=== PATIENT | male | born 1945 | race Caucasian/White ===

== ENCOUNTER 2022-07-26 20:52 | Inpatient (IN) | payer OTHER ==
[~2022-07-26] VITALS: Ht 180.3 cm; Wt 87.7 kg
[2022-07-26 21:30] LABS: BASOPHILS ABSOLUTE AUTO 0.03 K/mm3 (0.00-0.23); BASOPHILS PERCENT AUTO 0 % (0-2); EOSINOPHILS PERCENT AUTO 0 % (0-6); Hematocrit 48.2 % (37.0-53.0); Hemoglobin 15.5 g/dL (13.5-17.5); IMMATURE GRAN ABSOLUTE AUTO 0.07 K/mm3 (0.00-0.10); IMMATURE GRAN PERCENT AUTO 0 % (0-1); LYMPHOCYTES ABSOLUTE AUTO 1.04 K/mm3 (0.84-5.20); LYMPHOCYTES PERCENT AUTO 6 % (21-46); MONOCYTES ABSOLUTE AUTO 0.44 K/mm3 (0.16-1.47); MONOCYTES PERCENT AUTO 3 % (4-13); Mean Corpuscular HGB 29.4 pg (26.0-34.0); Mean Corpuscular HGB Conc 32.2 g/dL (31.5-36.5); Mean Corpuscular Volume 92 fL (80-100); NEUTROPHILS ABSOLUTE AUTO 15.87 K/mm3 (1.96-9.15); NEUTROPHILS PERCENT AUTO 91 % (41-73); Platelet Count 183 K/mm3 (150-400); RDW Coefficient Variation 13.2 % (11.7-14.2); RDW Standard Deviation 44.5 fL (35.1-46.3); Red Blood Cell Count 5.27 M/mm3 (4.30-5.90); White Blood Cell Count 17.45 K/mm3 (4.00-11.30)
[2022-07-26 22:30] LABS: Albumin, Blood 3.5 g/dL (3.4-5.0); Bilirubin, Total 0.3 mg/dL (0.1-1.0); Bun/Creatinine Ratio 24.6 (12.0-20.0); Calcium, Blood 9.5 mg/dL (8.5-10.1); Creatinine, Blood 0.98 mg/dL (0.60-1.20); Globulin, Blood 3.5 g/dL (2.2-4.0); Potassium, Blood 3.5 mmol/L (3.5-5.5)
[2022-07-26 23:06] LABS: Source, Urine Clean Catch
[2022-07-26 23:08] LABS: Bilirubin, Urine Neg (Neg); Blood, Urine 4+ (Neg); Glucose Qualitative, Urine 4+ (Neg); Ketones, Urine 1+ (Neg); Leukocyte Esterase, Urine Neg (Neg); Nitrite, Urine Neg (Neg); Protein, Urine 2+ (Neg); Specific Gravity, Urine 1.025 (1.003-1.022); Urobilinogen, Urine NORM (Normal)
[2022-07-27 00:37] LABS: Appearance, Urine Clear (Clear); Color, Urine Yellow (P-Yellow)
[2022-07-27 00:42] LABS: Bacteria Few /hpf; Mucus Light (0-Heavy); Squamous Epithelial Cells Few /hpf (Few); White Blood Cells, Urine 0-2 /hpf (0-5)
[2022-07-27] MEDS ORDERED: CLOP75 PO (03:35)
[2022-07-27] MEDS ORDERED: DOXA1 PO (03:36)
[2022-07-27] MEDS ORDERED: FINA5 PO (03:36)
[2022-07-27] MEDS ORDERED: PRAV20 PO (03:37)
[2022-07-27] MEDS ORDERED: LISI20 PO (03:37)
--- NOTE | 2022-07-27 05:50 | NUR ---
PT NEW ADMIT THIS AM FROM ER FOR PANCREATITIS. PT A/O, VSS, DENIES DIZZINESS WHEN UP. GAIT SLIGHTLY UNSTEADY, PT DENIES USING WALKER OR AMBULATORY DEVICE. PT VSS, PT REP PAIN RADIATING ACCROSS UPPER ABD FOR APPX 12 HRS. PT REP ABD MORE DISTENDED, DENIES N/V, REP +FLATUS AND BM. ABD FIRM TO PALP, BT HYPO. IVF STARTED PER ORDERS, PT MED W/TORADOL. PT ORIENTED TO ROOM/CALL LIGHT AND NPO STATUS. BED ALARM ON FOR SAFETY.
[2022-07-27 06:15] LABS: BASOPHILS ABSOLUTE AUTO 0.01 K/mm3 (0.00-0.23); BASOPHILS PERCENT AUTO 0 % (0-2); EOSINOPHILS ABSOLUTE AUTO 0.01 K/mm3 (0.00-0.68); EOSINOPHILS PERCENT AUTO 0 % (0-6); Hematocrit 49.5 % (37.0-53.0); Hemoglobin 15.8 g/dL (13.5-17.5); IMMATURE GRAN ABSOLUTE AUTO 0.09 K/mm3 (0.00-0.10); IMMATURE GRAN PERCENT AUTO 0 % (0-1); LYMPHOCYTES ABSOLUTE AUTO 0.99 K/mm3 (0.84-5.20); LYMPHOCYTES PERCENT AUTO 5 % (21-46); MONOCYTES ABSOLUTE AUTO 1.09 K/mm3 (0.16-1.47); MONOCYTES PERCENT AUTO 5 % (4-13); Mean Corpuscular HGB 29.6 pg (26.0-34.0); Mean Corpuscular HGB Conc 31.9 g/dL (31.5-36.5); Mean Corpuscular Volume 93 fL (80-100); Mean Platelet Volume 11.7 fL (9.1-12.4); NEUTROPHILS ABSOLUTE AUTO 18.12 K/mm3 (1.96-9.15); NEUTROPHILS PERCENT AUTO 89 % (41-73); Platelet Count 154 K/mm3 (150-400); RDW Coefficient Variation 13.3 % (11.7-14.2); RDW Standard Deviation 45.5 fL (35.1-46.3); Red Blood Cell Count 5.33 M/mm3 (4.30-5.90); White Blood Cell Count 20.31 K/mm3 (4.00-11.30)
[2022-07-27 06:39] LABS: Alanine Aminotransfer (ALT/SGP 23 U/L (12-78); Albumin, Blood 3.3 g/dL (3.4-5.0); Albumin/Globulin Ratio 0.9 (0.8-1.8); Alk Phos 51 U/L (50-136); Anion Gap 8 mmol/L (6-16); Aspartate Aminotrans (AST/SGOT 26 U/L (12-37); Bilirubin, Total 0.4 mg/dL (0.1-1.0); Blood Urea Nitrogen 23 mg/dL (8-24); Bun/Creatinine Ratio 27.3 (12.0-20.0); CO2, Blood 18 mmol/L (21-32); Chloride, Blood 113 mmol/L (98-108); Creatinine, Blood 0.84 mg/dL (0.60-1.20); Globulin, Blood 3.6 g/dL (2.2-4.0); Glomerular Filtration Rate 89 (60-); Glucose, Blood 183 mg/dL (70-99); Potassium, Blood 4.2 mmol/L (3.5-5.5); Sodium, Blood 139 mmol/L (136-145); Total Protein, Blood 6.9 g/dL (6.4-8.2); Triglycerides 63 mg/dL (30-160)
[2022-07-27] MEDS ORDERED: ASPI81CH PO (09:55)
[2022-07-27] MEDS ORDERED: ERGO400 PO (10:01)
--- NOTE | 2022-07-27 17:32 | NUR ---
SHIFT SUMMERY PATIENT WILLINGLY ACCEPTED CARE FROM BRICKLAYER TENDER. HIS PAIN HAS DECREASED THROUGHOUT THE DAY. HE HAS RESTED COMFORTABLY BUT WAKES APPROPRIATELY WHEN ADDRESSED. FAMILY WAS AT BEDSIDE THIS MORNING. HE FELT UP TO GETTING A SHOWER THIS AFTERNOON. ALL ADL'S WERE PERFORMED IND WITH SUPERVISION. A NEW IV WAS PLACED ON LEFT FOREARM BECAUSE PATIENT SLEEPS ON RIGHT SIDE OCLUDING THE R. AC SITE. THE LEFT IV IS RUNNING NORMAL SALINE AT 150ML/HR. BOTH SITES ARE PATENT WITH NO REDNESS OR SWELLING. PATIENT DENIES ANY NAUSEA.
[2022-07-28 05:11] LABS: Hematocrit 45.8 % (37.0-53.0); Mean Corpuscular HGB 30.1 pg (26.0-34.0); Mean Corpuscular HGB Conc 32.8 g/dL (31.5-36.5); Mean Corpuscular Volume 92 fL (80-100); Mean Platelet Volume 11.4 fL (9.1-12.4); Platelet Count 140 K/mm3 (150-400); RDW Coefficient Variation 13.7 % (11.7-14.2); RDW Standard Deviation 46.6 fL (35.1-46.3); Red Blood Cell Count 4.99 M/mm3 (4.30-5.90); White Blood Cell Count 22.76 K/mm3 (4.00-11.30)
[2022-07-28 05:54] LABS: Magnesium, Blood 2.2 mg/dL (1.6-2.4)
[2022-07-28 06:07] LABS: Albumin, Blood 2.8 g/dL (3.4-5.0); Albumin/Globulin Ratio 0.8 (0.8-1.8); Bilirubin, Total 0.7 mg/dL (0.1-1.0); Bun/Creatinine Ratio 29.2 (12.0-20.0); Calcium, Blood 8.3 mg/dL (8.5-10.1); Creatinine, Blood 0.99 mg/dL (0.60-1.20); Globulin, Blood 3.3 g/dL (2.2-4.0); Total Protein, Blood 6.1 g/dL (6.4-8.2)
--- NOTE | 2022-07-28 06:17 | NUR ---
PT REP OVERALL LESS PAINFUL, REP PAIN AVG 4/10, MGD W/SCHEDULED TORADOL W/REP RELIEF, ALTHOUGH DID NEED MED FOR BREAKTHROUGH PAIN X1. PT ABD SLIGHTLY LESS FIRM, PT DENIED N/V, REP +FLATUS, NO BM THIS SHIFT. PT VOIDING AMVER URINE. PT REMAINS NPO, IVF CONT PER ORDERS. PT IS IMPULSIVE AT TIMES DURING NIGHT, BED ALARM ON FOR SAFETY.
--- NOTE | 2022-07-28 17:53 | NUR ---
SHIFT SUMMARY WAS ADVANCED TO CLEAR LQ's THIS AFTERNOON AFTER DR HICKS ROUNDED SINCE HAVING MINMAL ABD PAIN. CONT'd TO REPORT MINMAL ABD PAIN AROUND 1500. WHEN AWAOKE w/ CLEAR LQ DINNER TRAY AROUND 1730 C/O 7/10 ABD PAIN DESPITE HAVING ONLY SIPS OF WATER SINCE BROTH AROUND 1400. DENIES N/V. ONLY TAKING SIPS OF WATER.
[2022-07-29 06:19] LABS: Hematocrit 41.9 % (37.0-53.0); Mean Corpuscular HGB 29.5 pg (26.0-34.0); Mean Corpuscular HGB Conc 33.4 g/dL (31.5-36.5); Mean Corpuscular Volume 88 fL (80-100); Mean Platelet Volume 11.9 fL (9.1-12.4); Platelet Count 124 K/mm3 (150-400); RDW Coefficient Variation 13.6 % (11.7-14.2); RDW Standard Deviation 44.2 fL (35.1-46.3); Red Blood Cell Count 4.75 M/mm3 (4.30-5.90)
[2022-07-29 06:38] LABS: Albumin, Blood 2.5 g/dL (3.4-5.0); Albumin/Globulin Ratio 0.7 (0.8-1.8); Bun/Creatinine Ratio 25.7 (12.0-20.0); Calcium, Blood 8.3 mg/dL (8.5-10.1); Creatinine, Blood 0.86 mg/dL (0.60-1.20); Globulin, Blood 3.4 g/dL (2.2-4.0); Magnesium, Blood 2.3 mg/dL (1.6-2.4); Potassium, Blood 3.5 mmol/L (3.5-5.5); Total Protein, Blood 5.9 g/dL (6.4-8.2)
--- NOTE | 2022-07-29 07:56 | NUR ---
PT VSS T/O NIGHT. PT DOES HAVE SOB WHEN FIRST UP OOB, SATS REMAINED >90% ON RA. ABD SOFTER, LESS DISTENDED. PT CONNER CL PO, REP NO FLATUS YET. PT REP ABD PAIN SOMEWHAT IMPROVING, ABD 5/10. NEW ORDER FOR NORCO REC W/REP RELIEF. PT UP OOB W/SBA, CONNER WELL. IVF CONT PER ORDERS. AMB ENC PT CONNER.
--- NOTE | 2022-07-29 19:01 | NUR ---
SHIFT SUMMARY PT HAS DONE WELL TODAY. ADVANCED TO LOW FAT DIET FOR DINNER & TOLERATED WELL. C/O MILD UPPER ABD PAIN THAT RADIATES TO BACK. DENIES N/V.
[2022-07-30 04:45] LABS: Mean Corpuscular HGB 29.5 pg (26.0-34.0); Mean Corpuscular HGB Conc 33.3 g/dL (31.5-36.5); Mean Corpuscular Volume 89 fL (80-100); Mean Platelet Volume 11.5 fL (9.1-12.4); Platelet Count 130 K/mm3 (150-400); RDW Coefficient Variation 13.6 % (11.7-14.2); RDW Standard Deviation 44.2 fL (35.1-46.3); White Blood Cell Count 17.16 K/mm3 (4.00-11.30)
[2022-07-30 05:03] LABS: Albumin, Blood 2.3 g/dL (3.4-5.0); Albumin/Globulin Ratio 0.7 (0.8-1.8); Bilirubin, Total 0.9 mg/dL (0.1-1.0); Calcium, Blood 8.3 mg/dL (8.5-10.1); Creatinine, Blood 0.97 mg/dL (0.60-1.20); Globulin, Blood 3.5 g/dL (2.2-4.0); Magnesium, Blood 2.3 mg/dL (1.6-2.4); Potassium, Blood 3.3 mmol/L (3.5-5.5); Total Protein, Blood 5.8 g/dL (6.4-8.2)
--- NOTE | 2022-07-30 05:43 | NUR ---
PT VSS T/O NIGHT. LUNGS COARSE AT TIMES, CLEAR W/COUGH. PT REP COUGH BECOMING MORE PRODUCTIVE. ABD REMAINS MILDLY DISTENDED, PAINFUL IN UPPER ABD, RADIATES TO BACK PER PT. PT REP PAIN MUCH BETTER MGD W/2 NORCO AND TORADOL. PT DENIED N/V, REP +FLATUS, NO BM YET. PT VOIDING URINE W/O DIFFICULTY. PT UP INDEP IN ROOM, SBA PRN.
--- NOTE | 2022-07-30 11:07 | NUR ---
Pt. is awake in bed and welcomes my visit. Pt. is pleasant, but shared details of the pain he experienced with his pancreatitus. Listened empathetically with a calming presence. Pt. displayed evidence of awareness and engagement. Pt. verbalized anticipation for dischare today. Prayed with Pt. Pt. verbalized gratitude for excellent medical care as well as the spiritual care visit.
[2022-07-30] MEDS ORDERED: Acetaminophen650 M1 PO (12:53)
[2022-07-30] MEDS ORDERED: DOCU100 PO (12:54)
[2022-07-30] MEDS ORDERED: HYDR1TAB94 PO (12:56)
== END 2022-07-30 13:14 | disposition home or self-care (01) | DRG 440 ==
LOC: ER 20:52 → SURS 07-27 04:25
PROVIDERS: Emergency Medicine; Family Medicine; Internal Medicine; ADMIT Internal Medicine
DX: K85.90 Acute pancreatitis without necrosis or infection, unspecified (principal); N40.0 Benign prostatic hyperplasia without lower urinary tract symptoms; R06.00 Dyspnea, unspecified; I10 Essential (primary) hypertension; D72.829 Elevated white blood cell count, unspecified; F17.210 Nicotine dependence, cigarettes, uncomplicated; Z86.73 Personal history of transient ischemic attack (TIA), and cerebral infarction without residual deficits; Z88.8 Allergy status to other drugs, medicaments and biological substances
CPT/HCPCS: 36415; 71046; 74177; 80053; 81001; 82947; 83690; 83735; 83880; 84478; 84484; 85025; 85027; 93005; 93010; 96374-59; 96375; 96376; 99285-25; A9270; C9113; J1170; J1650; J1885; J2405; J7030; J7120; Q9967

== ENCOUNTER 2022-08-14 11:59 | Inpatient (IN) | payer OTHER ==
[~2022-08-14] VITALS: Ht 177.8 cm; Wt 85.5 kg
[~2022-08-14 11:59] MED LIST: ASPI81CH PO; Acetaminophen650 M1 PO; CLOP75 PO; DOCU100 PO; DOXA1 PO; ERGO400 PO; FINA5 PO; HYDR1TAB94 PO; LISI20 PO; PRAV20 PO
[2022-08-14 13:14] LABS: BASOPHILS ABSOLUTE AUTO 0.03 K/mm3 (0.00-0.23); BASOPHILS PERCENT AUTO 0 % (0-2); EOSINOPHILS PERCENT AUTO 0 % (0-6); Hematocrit 42.2 % (37.0-53.0); IMMATURE GRAN ABSOLUTE AUTO 0.12 K/mm3 (0.00-0.10); IMMATURE GRAN PERCENT AUTO 1 % (0-1); LYMPHOCYTES ABSOLUTE AUTO 1.02 K/mm3 (0.84-5.20); LYMPHOCYTES PERCENT AUTO 5 % (21-46); MONOCYTES ABSOLUTE AUTO 0.75 K/mm3 (0.16-1.47); MONOCYTES PERCENT AUTO 4 % (4-13); Mean Corpuscular HGB 28.9 pg (26.0-34.0); Mean Corpuscular HGB Conc 33.2 g/dL (31.5-36.5); Mean Corpuscular Volume 87 fL (80-100); NEUTROPHILS ABSOLUTE AUTO 17.41 K/mm3 (1.96-9.15); NEUTROPHILS PERCENT AUTO 90 % (41-73); Platelet Count 333 K/mm3 (150-400); RDW Coefficient Variation 13.2 % (11.7-14.2); RDW Standard Deviation 41.9 fL (35.1-46.3); Red Blood Cell Count 4.84 M/mm3 (4.30-5.90); White Blood Cell Count 19.33 K/mm3 (4.00-11.30)
[2022-08-14 13:37] LABS: Albumin, Blood 2.4 g/dL (3.4-5.0); Albumin/Globulin Ratio 0.5 (0.8-1.8); Bilirubin, Total 0.4 mg/dL (0.1-1.0); Bun/Creatinine Ratio 19.3 (12.0-20.0); Creatinine, Blood 0.98 mg/dL (0.60-1.20); Globulin, Blood 4.4 g/dL (2.2-4.0); Magnesium, Blood 2.3 mg/dL (1.6-2.4); Potassium, Blood 3.9 mmol/L (3.5-5.5); Thyroid Stimulating Hormone 0.156 uIU/mL (0.360-4.800); Total Protein, Blood 6.8 g/dL (6.4-8.2)
--- NOTE | 2022-08-14 20:30 | NUR ---
ADMISSION PT ADMITTED FROM THE ED, PT IS AWAKE, A& X4, VSS, ON 2L O2 VIA NC, RESP UNLABORED, LUNGS DIM BILAT BASES, CARDIZEM GTT INFUSING @ 5 ML/HR, HR 94, AFIB, DENIES CP/PRESSURE. PT HAS BEEN MEDICATED FOR PAIN IN THE ED DUE TO PANCREATITIS. PT WAS ABLE TO TRANSFER VIA STAND BY ASSIST FROM [facility]. NS @150 ML/HR INFUSIONG PER EMAR, PT NPO AT THIS TIME. CALL LIGHT IN REACH, WCTM
[2022-08-15 04:21] LABS: Hematocrit 37.6 % (37.0-53.0); Hemoglobin 12.5 g/dL (13.5-17.5); Mean Corpuscular HGB 29.3 pg (26.0-34.0); Mean Corpuscular HGB Conc 33.2 g/dL (31.5-36.5); Mean Corpuscular Volume 88 fL (80-100); Mean Platelet Volume 10.8 fL (9.1-12.4); Platelet Count 315 K/mm3 (150-400); RDW Coefficient Variation 13.4 % (11.7-14.2); RDW Standard Deviation 43.4 fL (35.1-46.3); Red Blood Cell Count 4.27 M/mm3 (4.30-5.90); White Blood Cell Count 18.46 K/mm3 (4.00-11.30)
[2022-08-15 04:40] LABS: Bun/Creatinine Ratio 22.9 (12.0-20.0); Calcium, Blood 8.4 mg/dL (8.5-10.1); Creatinine, Blood 1.05 mg/dL (0.60-1.20); Potassium, Blood 4.1 mmol/L (3.5-5.5)
--- NOTE | 2022-08-15 05:27 | NUR ---
SHIFT SUMMARY PT IS A&O X4, COOPERATIVE W/CARE, VSS, ON 2 L O2 WHILE SLEEPING. PT HAS BEEN NPO, DENIES NAUSEA, PASSING FLATUS, VOIDING WNL. PAIN MNG WITH 50 MCG IV FENTANYL PRN PER EMAR. NS @150 ML/HR, PT IS VOIDING WNL, HE LIKES TO STAND AT THE BEDSIDE TO URINATE. PT CONVERTED TO SR, CARDIZEM GTT STOPPED AT 0004, HR REMAINED 85-95 BPM WHILE AT REST, WHEN PT GOT UP TO THE BEDSIDE TO URINATE HIS HR RATE INCREASED AND HE CONVERTED BACK TO AFIB X2, PT IS CURRENTLY IN BED RESTING QUIETLY, SINUS, HR 93. DISCUSSED PT W/IMMIGRATION INVESTIGATOR, WCUSHA & REPORT TO DAY RN, CALL LIGHT IN REACH.
--- NOTE | 2022-08-15 18:54 | NUR ---
DAY SHIFT SUMMARY PT ORIENTED X4, VSS PER PT TREND. ST LOW 1O0S ON TELEMETRY. INCREASE TO 130S WITH AMBULATION. PAIN IN BACK AND ABDOMEN 10/10 WHEN AWAKE. SPOKE WITH DR. DOSHI THIS AFTERNOON AND FENTANYL CARPET CUTTER ORDERED FOR BETTER PAIN CONTROL. SEE EMAR FOR DETAILS. BLADDER SCAN COMPLETED DUE TO LOW MEASURED VOIDS, ONLY 350 ML AND 300ML VOIDED WITH A POST VOID OF 76ML. PAIN WITH ABDOMEN PALPATION. ON 3L NC, DESATS WITH SLEEP. CONTINOUS PULSE OX. PT REPORTS BETTER PAIN RELIEF AFTER INITIATION OF CARPET CUTTER. WILL PASS ON TO NOC RN
--- NOTE | 2022-08-16 04:16 | NUR ---
SHIFT SUMMARY: A&OX4, IRRITABLE AT TIMES BUT COOPERATIVE. VEGETABLE FARMING SUPERVISOR PUMP ADMINISTERING FENTANYL AT PT REQUEST WITH LOCKOUT 100 MCG Q4HR. PT STATES PAIN IS TOLERABLE AT 4/10. PT NAUSEATED X 1 WITH SMALL EMESIS, RESOLVED WITH ZOFRAN ADMINISTRATION, SEE EMAR. HR CONTINUES TO BE LABILE BETWEEN ST IN 100'S TO A-FIB IN 130'S. NO COMPLAINTS OF CHEST PAIN. AFEBRILE. O2 SATS > 92% ON 3 LPM, DENIES SOB. VOIDING WITHOUT DIFFICULTY. ABLE TO STAND AT BEDSIDE FOR SHORT AMOUNT OF TIME TO VOID.
[2022-08-16 04:46] LABS: BASOPHILS ABSOLUTE AUTO 0.03 K/mm3 (0.00-0.23); BASOPHILS PERCENT AUTO 0 % (0-2); EOSINOPHILS PERCENT AUTO 0 % (0-6); Hematocrit 36.6 % (37.0-53.0); Hemoglobin 12.2 g/dL (13.5-17.5); IMMATURE GRAN PERCENT AUTO 1 % (0-1); LYMPHOCYTES ABSOLUTE AUTO 1.05 K/mm3 (0.84-5.20); LYMPHOCYTES PERCENT AUTO 6 % (21-46); MONOCYTES ABSOLUTE AUTO 0.92 K/mm3 (0.16-1.47); MONOCYTES PERCENT AUTO 5 % (4-13); Mean Corpuscular HGB 29.4 pg (26.0-34.0); Mean Corpuscular HGB Conc 33.3 g/dL (31.5-36.5); Mean Corpuscular Volume 88 fL (80-100); NEUTROPHILS ABSOLUTE AUTO 16.05 K/mm3 (1.96-9.15); NEUTROPHILS PERCENT AUTO 88 % (41-73); Platelet Count 301 K/mm3 (150-400); RDW Coefficient Variation 13.4 % (11.7-14.2); RDW Standard Deviation 43.9 fL (35.1-46.3); Red Blood Cell Count 4.15 M/mm3 (4.30-5.90); White Blood Cell Count 18.15 K/mm3 (4.00-11.30)
[2022-08-16 05:01] LABS: Magnesium, Blood 2.1 mg/dL (1.6-2.4)
[2022-08-16 05:02] LABS: Albumin, Blood 1.8 g/dL (3.4-5.0); Albumin/Globulin Ratio 0.5 (0.8-1.8); Bilirubin, Total 0.6 mg/dL (0.1-1.0); Bun/Creatinine Ratio 31.4 (12.0-20.0); Calcium, Blood 7.7 mg/dL (8.5-10.1); Creatinine, Blood 0.76 mg/dL (0.60-1.20); Globulin, Blood 3.9 g/dL (2.2-4.0); Potassium, Blood 3.8 mmol/L (3.5-5.5); Total Protein, Blood 5.7 g/dL (6.4-8.2)
[2022-08-16 18:09] LABS: Adenovirus Not Detected (NOT DETECT); Bordetella pertussis Not Detected (NOT DETECT); Chlamydophila pneumoniae Not Detected (NOT DETECT); Coronavirus 229E Not Detected (NOT DETECT); Coronavirus HKU1 Not Detected (NOT DETECT); Coronavirus NL63 Not Detected (NOT DETECT); Coronavirus OC43 Not Detected (NOT DETECT); Human Metapneumovirus Not Detected (NOT DETECT); Human Rhinovirus/Enterovirus Not Detected (NOT DETECT); Influenza A/2009-H1 Not Detected (NOT DETECT); Influenza A/H1 Not Detected (NOT DETECT); Influenza A/H3 Not Detected (NOT DETECT); Influenza B Not Detected (NOT DETECT); Mycoplasma pneumoniae Not Detected (NOT DETECT); Parainfluenza Virus 1 Not Detected (NOT DETECT); Parainfluenza Virus 2 Not Detected (NOT DETECT); Parainfluenza Virus 3 Not Detected (NOT DETECT); Parainfluenza Virus 4 Not Detected (NOT DETECT); Respiratory Syncytial Virus Not Detected (NOT DETECT); SARS-Cov-2 (COVID-19), BioFire Not Detected (NOT DETECT)
--- NOTE | 2022-08-16 18:46 | NUR ---
DAY SHIFT SUMMARY PT HAD A PRODUCTIVE DAY. ORIENTED X4, VSS PER PT TREND. REPORTS PAIN BETTER CONTROLLED AFTER SETTING CHANGES TO FENTANYL UNDERGROUND PRODUCTION FOREPERSON AFTER DISCUSSION WITH DR. DOSHI THIS AM. CRACKLES NOTED IN LUNG BASES, ORDERS RECEIVED FOR CHEST XRAY AND ALBUMIN X2 BAGS. PT REQUIRING 2L NC. RESPIRATORY PANEL SENT AND CAME BACK NEGATIVE THIS EVENING. NO NAUSEA OR VOMITING. HR CONTROLLED WITH PO MEDS. CARDIZEM GTT OFF SINCE YESTERDAY. - KJ UPDATED ON PLAN OF CARE. WILL PASS ON TO NOC SHIFT RN
--- NOTE | 2022-08-17 05:06 | NUR ---
SHIFT SUMMARY: PT A&OX4. REPORTS PAIN CONTROL HAVE IMPROVED WITH PAIN AT 2/10 IN ABDOMEN WITH LITHOGRAPH DESIGNER PUMP ON DEMAND. ABDOMEN DISTENDED BUT SOFT, MILDLY TENDER TO PALPATION. LUNCH SOUNDS CONTINUE TO BE COARSE AND DEMINISHED IN ALL [place]. IS PROVIDED AND ENCOURAGED TO USE, PT ABLE TO DEMONSTRATE USE. ALSO ENCOURAGED COUGHING/DEEP BREATHING. HR A-FIB/ST IN LOW 100'S. DENIES CHEST PAIN. O2 SATS > 92% ON 3LPM, ABLE TO DECREASE TO 2 LPM WITH PT MAINTAINING O2 SATS. FLUIDS INFUSING AT 50 ML/HR. VOIDING TEA COLORED URINE STANDING AT [facility]. HEATING PAD PROVIDED AT PT REQUEST FOR ACHING IN BACK WITH GOOD RESULTS.
[2022-08-17 13:27] LABS: BASOPHILS ABSOLUTE AUTO 0.01 K/mm3 (0.00-0.23); BASOPHILS PERCENT AUTO 0 % (0-2); EOSINOPHILS PERCENT AUTO 0 % (0-6); Hematocrit 39.3 % (37.0-53.0); Hemoglobin 13.2 g/dL (13.5-17.5); IMMATURE GRAN ABSOLUTE AUTO 0.07 K/mm3 (0.00-0.10); IMMATURE GRAN PERCENT AUTO 0 % (0-1); LYMPHOCYTES ABSOLUTE AUTO 1.24 K/mm3 (0.84-5.20); LYMPHOCYTES PERCENT AUTO 7 % (21-46); MONOCYTES ABSOLUTE AUTO 1.05 K/mm3 (0.16-1.47); MONOCYTES PERCENT AUTO 6 % (4-13); Mean Corpuscular HGB 29.7 pg (26.0-34.0); Mean Corpuscular HGB Conc 33.6 g/dL (31.5-36.5); Mean Corpuscular Volume 88 fL (80-100); NEUTROPHILS ABSOLUTE AUTO 14.93 K/mm3 (1.96-9.15); NEUTROPHILS PERCENT AUTO 86 % (41-73); Platelet Count 287 K/mm3 (150-400); RDW Coefficient Variation 13.4 % (11.7-14.2); RDW Standard Deviation 43.5 fL (35.1-46.3); Red Blood Cell Count 4.45 M/mm3 (4.30-5.90)
--- NOTE | 2022-08-17 16:56 | NUR ---
CARE NOTE AT APPROX. 1600 PT HAD RETURNED TO CHAIR FROM TAKING A SHOWER, 1607 BP WAS 85/53, PT RETURNED TO BED AND UPON BP REASSESSMENT, BP AT 1649 WAS 130/73 W/ A MAP OF 91. DR. DOSHI MADE AWARE AT APPROX. 1650 OF PT BP AND HR STATUS. WE DISCUSSED ADMINISTERING 1700 METOPROLOL BUT IF BP DECREASES AGAIN TO ADMINISTER FLUID BOLUS. WILL CONTINUE TO MONITOR AND INTERVENE APPROPRIATE.
--- NOTE | 2022-08-17 17:51 | NUR ---
CARE NOTE INSTRUCTIONAL DESIGN CONSULTANT PUMP CLEARED, CARLOS MENCHACA RN ASSISTED. 2 INSTRUCTIONAL DESIGN CONSULTANT KEYS REMOVED FROM PYXIS BECAUSE THE FIRST SYKES DID NOT OPEN INSTRUCTIONAL DESIGN CONSULTANT PUMP, SYKES RETURNED TO EXTERNAL BIN AND WITNESSED BY ELPIDIO MENCHACA RN. SECOND SYKES RETURNED TO PYXIS POCKET. ALSO WITNESSED BY ELPIDIO MENCHACA RN
--- NOTE | 2022-08-17 18:36 | NUR ---
SHIFT SUMMARY PT IS ALERT AND ORIENTED X 4, HE IS PLEASANT AND COOPERATIVE W/ CARE AND IS ABLE TO MAKE HIS NEEDS KNOWN. PER TELE MONITORING, HR HAS RANGED FROM 100-130'S. AFTER WORKING W/ PHYSICAL THERAPY, HR STARTED TO SUSTAIN IN 140'S, AND EVEN PEAKED AT 180, MADE AWARE AND ORDERS GIVEN, SEE EMAR. HR CONTINUED TO SUSTAIN 110'S-120'S, SEE EMAR FOR METORPROLOL DOSE ADJUSTMENTS PER ORDERS. SEE PREVIOUS NOTE REGARDING BP DECREASE. BP IS NOW STABLE W/ SBP 112. HE HAS CONTINUED TO DENY FEELINGS OF CHEST PAIN/PRESSURE WELL LIGHTHEADEDNESS/DIZZINESS. PAIN IS CONTROLLED VIA WAFER ABRADING MACHINE TENDER PUMP. OCCASIONAL DRY COUGH NOTED. HE HAS BEEN UP TO CHAIR MULTIPLE TIMES DURING SHIFT A 1 PERSON SBA. HE USES BEDSIDE URINAL TO VOID. HE ATTEMPTED A BM W/ NO SUCCESS THIS AM, BOWEL CARE PROVIDED APPROPRIATE. CUP W/ MIRALAX WAS ACCIDENTLY THROWN OUT, PT REPORTED ONLY DRINKING 1/4 OF MIRALAX DRINK SO ADDITIONAL DOSE PULLED FOR ADEQUATE DOSE TO BE TAKEN. HIS WAS AT BEDSIDE THIS AFTERNOON. PT IS NOW SLEEPING, CALL LIGHT IN REACH, BED IN LOW, BED ALARM ON TO MAINTAIN SAFETY.
--- NOTE | 2022-08-18 06:16 | NUR ---
SHIFT SUMMARY: A&OX4. DENIES ANY COMPLAINTS OF SOB OR CHEST PAIN DURING SHIFT. HR VARING BETWEEN ST AND A-FIB, 100 WHEN RESTING IN BED. WHEN GETTING UP TO VOID UP TO 150'S, AT TIMES SUSTAINS AFTER RETURNING TO BED, AT OTHER TIMED DECREASES BACK TO 100'S. ATTEMPTED TO WEAN PT'S O2 TO 1 LPM, SUCESSFUL WHEN AWAKE BUT DESATURATES TO 88% WHEN SLEEPING, PLACED BACK ON 3 LPM WHEN SLEEPING. PT DENIES PAIN IN ABDOMEN DURING SHIFT, 220 MCG FENTANYL USED FROM HYDRO PLANT SITE MANAGER PUMP DURING SHIFT. ABDOMEN DISTENDED BUT SOFT TO PALPATION AND NONTENDER. DENIES NAUSEA DURING SHIFT.
[2022-08-18] MEDS ORDERED: LEVO750 PO (14:30)
[2022-08-18] MEDS ORDERED: METO50ER PO (14:30)
[2022-08-18] MEDS ORDERED: ELIQUIS5 M2 PO (14:30)
--- NOTE | 2022-08-18 17:37 | NUR ---
ASSUMED CARE OF PT AT 0700 THIS AM. NO ACUTE CHANGES T/O SHIFT. PT TAKEN OFF EMBROIDERY CUTTER PUMP FOR PAIN AND ADVANCED TO A REGULAR DIET, PT TOLERATED BOTH WELL WITHOUT ANY COMPLAINTS. OK TO DISCHARGE PER DR DOSHI. HOME OX EVAL DONE AND PT IS BEING SENT HOME WITH O2. DISCHARGE TEACHING REVIEWED WITH PT, HE VERBALIZES UNDERSTANDING AND HAS NO QUESTIONS OR CONCERNS AT THIS TIME. IVs REMOVED WNL. ALL BELONGINGS SENT HOME WITH PT, NO OTHER DISCHARGE NEEDS IDENTIFIED AT THIS TIME.
== END 2022-08-18 17:41 | disposition home or self-care (01) | DRG 438 ==
LOC: ER 11:59 → ERHOLD 15:25 → PCU 15:25
PROVIDERS: Emergency Medicine; Nurse Practitioner Acute Care; Student in an Organized Health Care Education/Training Program; ADMIT Internal Medicine
DX: K85.90 Acute pancreatitis without necrosis or infection, unspecified (principal); J18.9 Pneumonia, unspecified organism; I48.19 Other persistent atrial fibrillation; N40.0 Benign prostatic hyperplasia without lower urinary tract symptoms; I10 Essential (primary) hypertension; Z88.8 Allergy status to other drugs, medicaments and biological substances; Z79.82 Long term (current) use of aspirin; Z79.899 Other long term (current) drug therapy; Z86.73 Personal history of transient ischemic attack (TIA), and cerebral infarction without residual deficits; E78.5 Hyperlipidemia, unspecified; F17.210 Nicotine dependence, cigarettes, uncomplicated; E88.09 Other disorders of plasma-protein metabolism, not elsewhere classified; D72.828 Other elevated white blood cell count; Z20.822 Contact with and (suspected) exposure to COVID-19
CPT/HCPCS: 0202U; 36415; 71045; 71046; 76705; 80048; 80053; 82947; 83036; 83690; 83735; 83880; 84439; 84443; 84481; 84484; 85025; 85027; 93005; 93010; 93306; 94761; 94762; 96365; 96366; 96375; 96376; 97110; 97162; 97165; 97530; 97535; 99285-25; A9270; J1170; J1650; J1956; J2405; J3010; J7030; P9047

== ENCOUNTER 2022-08-27 09:52 | Emergency (ER) | payer OTHER ==
[~2022-08-27] VITALS: Ht 180.3 cm; Wt 86.2 kg
[~2022-08-27 09:52] MED LIST changes: +ELIQUIS5 M2 PO; +LEVO750 PO; +METO50ER PO
[2022-08-27 10:34] LABS: BASOPHILS ABSOLUTE AUTO 0.04 K/mm3 (0.00-0.23); BASOPHILS PERCENT AUTO 0 % (0-2); EOSINOPHILS ABSOLUTE AUTO 0.01 K/mm3 (0.00-0.68); EOSINOPHILS PERCENT AUTO 0 % (0-6); Hematocrit 38.2 % (37.0-53.0); Hemoglobin 12.9 g/dL (13.5-17.5); IMMATURE GRAN ABSOLUTE AUTO 0.16 K/mm3 (0.00-0.10); IMMATURE GRAN PERCENT AUTO 1 % (0-1); LYMPHOCYTES ABSOLUTE AUTO 1.32 K/mm3 (0.84-5.20); LYMPHOCYTES PERCENT AUTO 6 % (21-46); MONOCYTES ABSOLUTE AUTO 0.88 K/mm3 (0.16-1.47); MONOCYTES PERCENT AUTO 4 % (4-13); Mean Corpuscular HGB 28.6 pg (26.0-34.0); Mean Corpuscular HGB Conc 33.8 g/dL (31.5-36.5); Mean Corpuscular Volume 85 fL (80-100); Mean Platelet Volume 10.3 fL (9.1-12.4); NEUTROPHILS ABSOLUTE AUTO 18.84 K/mm3 (1.96-9.15); NEUTROPHILS PERCENT AUTO 89 % (41-73); Platelet Count 292 K/mm3 (150-400); RDW Coefficient Variation 14.3 % (11.7-14.2); RDW Standard Deviation 44.2 fL (35.1-46.3); Red Blood Cell Count 4.51 M/mm3 (4.30-5.90); White Blood Cell Count 21.25 K/mm3 (4.00-11.30)
[2022-08-27 10:48] LABS: Albumin, Blood 1.5 g/dL (3.4-5.0); Albumin/Globulin Ratio 0.4 (0.8-1.8); Bilirubin, Total 0.6 mg/dL (0.1-1.0); Bun/Creatinine Ratio 65.1 (12.0-20.0); Calcium, Blood 8.2 mg/dL (8.5-10.1); Creatinine, Blood 1.26 mg/dL (0.60-1.20); Globulin, Blood 3.9 g/dL (2.2-4.0); Magnesium, Blood 2.7 mg/dL (1.6-2.4); Potassium, Blood 3.1 mmol/L (3.5-5.5); Total Protein, Blood 5.4 g/dL (6.4-8.2)
[2022-08-27 11:19] LABS: Influenza A, PCR NEGATIVE (NEGATIVE); Influenza B, PCR NEGATIVE (NEGATIVE); Resp Syncytial Virus, PCR NEGATIVE (NEGATIVE)
[2022-08-27 11:20] LABS: SARS-Cov-2 (COVID-19) PCR, MMC POSITIVE (NEGATIVE)
[2022-08-27 12:48] LABS: Source, Urine Clean Catch
[2022-08-27 12:56] LABS: Appearance, Urine Clear (Clear); Bilirubin, Urine Neg (Neg); Blood, Urine 4+ (Neg); Color, Urine Yellow (P-Yellow); Glucose Qualitative, Urine Neg (Neg); Ketones, Urine Neg (Neg); Leukocyte Esterase, Urine Neg (Neg); Nitrite, Urine Neg (Neg); Protein, Urine Neg (Neg); Specific Gravity, Urine 1.015 (1.003-1.022); Urobilinogen, Urine NORM (Normal)
[2022-08-27 13:12] LABS: Bacteria Rare /hpf; Squamous Epithelial Cells Not Seen /hpf (Few); White Blood Cells, Urine 0-2 /hpf (0-5)
== END 2022-08-27 22:12 | disposition short-term general hospital (02) ==
LOC: ER 09:52
PROVIDERS: Student in an Organized Health Care Education/Training Program
DX: A41.89 Other specified sepsis (principal); U07.1 COVID-19; R65.20 Severe sepsis without septic shock; N17.9 Acute kidney failure, unspecified; I48.91 Unspecified atrial fibrillation; E87.6 Hypokalemia; K85.91 Acute pancreatitis with uninfected necrosis, unspecified; Z88.8 Allergy status to other drugs, medicaments and biological substances; Z79.899 Other long term (current) drug therapy; Z79.82 Long term (current) use of aspirin; I10 Essential (primary) hypertension; E78.5 Hyperlipidemia, unspecified; F17.210 Nicotine dependence, cigarettes, uncomplicated
CPT/HCPCS: 0241U; 36415; 71046; 74177; 80053; 81001; 83605; 83690; 83735; 83880; 84484; 85025; 93005; 93010; J2405; J2543; J3370; J3475; J3480; J7030; J7050; Q9967